=== PATIENT | male | born 1980 | race Caucasian/White ===

== ENCOUNTER 2024-12-06 11:47 | Emergency (ER) | payer OTHER ==
[~2024-12-06] VITALS: Ht 177.8 cm; Wt 72.4 kg
[2024-12-06 11:53] VITALS: O2SAT 96
[2024-12-06 11:56] VITALS: BP 121/77; PULSE 78; RESP 18; TEMP 36.9; O2SAT 98
[2024-12-06] MEDS: KETOROLAC 30MG/ML VIAL IV STA (13:27)
[2024-12-06] MEDS: SODIUM CHLORIDE 0.9% 1,000 ML IV ONE (13:27)
[2024-12-06 14:03] LABS: BASOPHILS % 0.6 % (0.0-2.0); EOSINOPHILS % 0.7 % (0.0-5.0); HEMATOCRIT. 40.1 % (42.0-52.0); HEMOGLOBIN. 13.3 g/dL (14.0-18.0); LYMPHOCYTES % 26.8 % (20.0-50.0); MEAN CORPUSCULAR HEMOGLOBIN 28.8 pg (28.0-32.0); MEAN CORPUSCULAR HGB CONC 33.1 g/dL (31.0-37.0); MEAN CORPUSCULAR VOLUME 87.1 fL (80.0-94.0); MEAN PLATELET VOLUME 8.7 fl (7.4-10.4); NEUTROPHILS % 67.9 % (40.0-76.0); PLATELET 279 x1000/uL (130-400); RED CELL DISTRIBUTION WIDTH 14.4 % (11.6-14.6); WHITE BLOOD COUNT 8.9 x1000/uL (4.5-11.0)
[2024-12-06 14:14] LABS: CHLORIDE 109 mEq/L (98-107); POTASSIUM 3.8 mEq/L (3.5-5.1); SODIUM 142 mEq/L (136-145)
[2024-12-06 14:15] LABS: CALCIUM 9.1 mg/dL (8.7-10.4); CARBON DIOXIDE 27 mEq/L (21-32)
[2024-12-06 14:20] LABS: CREATININE 0.9 mg/dL (0.6-1.3); GLUCOSE 83 mg/dL (70-105); UREA NITROGEN BLOOD 9 mg/dL (9-23)
[2024-12-06 16:13] LABS: CLARITY URINE TURBID (CLEAR); COLOR URINE ORANGE (YELLOW); GLUCOSE URINE NEGATIVE (NEGATIVE); KETONES URINE 1+ (NEGATIVE); LEUKOCYTE ESTERASE URINE 3+ (NEGATIVE); NITRITE URINE POSITIVE (NEGATIVE); OCCULT BLOOD URINE 3+ (NEGATIVE); PROTEIN URINE 3+ (NEGATIVE); SPECIFIC GRAVITY URINE 1.025 (1.005-1.030)
[2024-12-06] MEDS ORDERED: PROM25TA13 MT (16:38)
[2024-12-06] MEDS ORDERED: IBUP-1523 MT (16:38)
[2024-12-06] MEDS ORDERED: CIPR500T5 MT (16:38)
[2024-12-06] MEDS ORDERED: TOPUD MT (16:38)
[2024-12-06 17:08] LABS: BACTERIA URINE 3+; MUCUS URINE 1+ /lpf (NONE/TRACE); RBC URINE 50-100 /hpf (0-2); SQUAMOUS EPITHELIAL CELL URINE RARE /lpf (RARE/1+); WBC URINE 25-50 /hpf (0-2)
== END 2024-12-06 16:54 | disposition home or self-care (01) ==
LOC: ER 11:47
DX: R10.9 Unspecified abdominal pain (principal); Z79.899 Other long term (current) drug therapy; Z98.890 Other specified postprocedural states
CPT/HCPCS: 99285; 74176; 96374; 96361; 80048; 81003; 83690; 85025; 87086; 87186; 87077; 36415; J1885; J7030